=== PATIENT | female | born 1955 | race Caucasian/White ===

== ENCOUNTER 2018-12-27 12:44 | Day surgery (SDC) | payer OTHER ==
[2018-12-27] MEDS ORDERED: LIDOCAINE 4% SOLUTION 50 ML BTL (13:58)
[2018-12-27] MEDS ORDERED: MIDAZOLAM 1 MG/ML 2 ML INJ ×3 (14:54→14:55)
[2018-12-27] MEDS ORDERED: FENTAnyl 50 MCG/ML VIAL (14:56)
== END 2018-12-27 15:11 | disposition home or self-care (01) ==
LOC: GIL 12:44
DX: Z12.11 Encounter for screening for malignant neoplasm of colon (principal); R10.13 Epigastric pain; K64.9 Unspecified hemorrhoids
CPT/HCPCS: 43239; 88305; 88312; 88313

== ENCOUNTER 2019-03-03 06:50 | Emergency (ER) | payer OTHER | END 2019-03-03 08:11 | disposition home or self-care (01) | LOC: FTE 06:50 | DX: L03.032 Cellulitis of left toe (principal) | CPT/HCPCS: 99283; Z7502 ==